=== PATIENT | male | born 1975 ===

== ENCOUNTER 2025-05-04 05:20 | Day surgery (SDC) | payer OTHER ==
[2025-04-30 13:02] VITALS: BP 126/83
[~2025-05-04] VITALS: Ht 175.3 cm; Wt 102.1 kg
[~2025-05-04 05:20] MED LIST: COZAAR25 MG PO; NORVASC2.5 M1 PO; SIMVASTATIN5 MG PO
[2025-05-04] MEDS ORDERED: METRONIDAZOLE/SODIUM CHLORIDE 500 MG/100 ML PIGGYBACK IV ONE (06:05)
[2025-05-04] MEDS ORDERED: DIBUCAINE 30 GM TUBE ONE (07:39)
[2025-05-04] MEDS ORDERED: BUPIVACAINE HCL/MPF 0.5% 30ML VIAL ONE (07:39)
[2025-05-04] MEDS ORDERED: HEMOSTATIC MATRIX 1 KIT KIT TOP ONE (07:40)
[2025-05-04] MEDS ORDERED: LIDOCAINE HCL 1%/EPINEPHRINE 20ML VIAL IJ ONE (07:40)
[2025-05-04] MEDS ORDERED: POVIDONE-IODINE 118 ML BOTT TOP ONE (07:40)
== END 2025-05-04 12:25 | disposition home or self-care (01) ==
LOC: CIR.AMB 05:20
PROVIDERS: ATTEND Colon & Rectal Surgery
DX: K62.0 Anal polyp (principal); A63.0 Anogenital (venereal) warts; Z88.0 Allergy status to penicillin